=== PATIENT | female | born 1970 | race Caucasian/White ===

== ENCOUNTER → 2016-06-19 | Outpatient (CLI) | payer OTHER | LOC: FIMAGING 09:51 | DX: Z12.31 Encounter for screening mammogram for malignant neoplasm of breast (principal) | CPT/HCPCS: G0202 ==

== ENCOUNTER → 2016-06-21 | Outpatient (CLI) | payer OTHER | LOC: FIMAGING 10:56 | PROVIDERS: ATTEND Family Medicine | DX: N60.02 Solitary cyst of left breast (principal) ==

== ENCOUNTER → 2017-07-03 | Outpatient (CLI) | payer OTHER | LOC: FIMAGING 14:57 | PROVIDERS: ATTEND Family Medicine | DX: Z12.31 Encounter for screening mammogram for malignant neoplasm of breast (principal) ==

== ENCOUNTER → 2017-08-12 | Outpatient (CLI) | payer OTHER ==
[~2017-08-12] MED LIST: GADOBUTROL 10 ML VIAL IVP ONE
== END ==
LOC: FIMAGING 15:20
PROVIDERS: ATTEND Family Medicine
DX: D32.0 Benign neoplasm of cerebral meninges (principal)
CPT/HCPCS: A9585